=== PATIENT | male | born 1975 | race Two or more races ===

== ENCOUNTER 2025-02-18 01:55 | Inpatient (IN) | payer MEDICAID, OTHER ==
[~2025-02-18] VITALS: Ht 188 cm; Wt 134.0 kg
--- NOTE | 2025-02-18 02:20 | ED.PDOC ---
HPI Comments 49 year old male presents to the ED with no prior Hx associated to the c/c of Chest Pain. Pt states that he made a journey from [place] all the way to [place] 1x week ago. Upon arrival pt states that he started to develop hip pain. Pt states since that journey the pain has migrated to his chest and left shoulder to the point where he states his should feels as if it is "free falling". Pt denies any PMHx, SHx or any other associated symptoms, modifiers, recent injuries or sick contacts present at this time. Chief Complaint: Chest Pain Time Seen by MD: 02:14 Reviewed Notes: Nurses Notes, Medications, Allergies Information Source: Patient Mode of Arrival: Ambulatory Severity: Moderate Timing: Days Duration: Since onset, Days Prehospital treatment: None Location: Chest (L) Radiation: Shoulder (L) Quality: Sharp, Squeezing Onset: At Rest Cardiac Risk Factors: None PE Risk Factors: None History of: None Modifying Factors: Nothing Associated Signs and Symptoms: Palpitations Past Medical History PAST MEDICAL HISTORY: Denies Surgical History: Denies all surgeries Family History Family History: Reviewed,noncontributory to illness, No family hx of Cancer, No family hx of DM, No family hx of Heart pan, No family hx of HTN, No family hx ofKidney pan, No family hx of Liver pan, No family hx of Lung pan, No family hx of Stroke Social History Smoker: Non-Smoker Alcohol: Denies ETOH Use Drugs: Denies Drug Use Lives In: Home Constitutional: denies: chills, diaphoresis, fatigue, fever, malaise, sweats, weakness, others EENTM: denies: blurred vision, double vision, ear bleeding, ear discharge, ear drainage, ear pain, ear ringing, eye pain, eye redness, hearing loss, mouth pain, mouth swelling, nasal discharge, nose bleeding, nose congestion, nose pain, photophobia, tearing, throat pain, throat swelling, voice changes, others Respiratory: denies: cough, hemoptysis, orthopnea, SOB at rest, shortness of breath, SOB with excertion, stridor, wheezing, others Cardiovascular: reports: chest pain; denies: dizzy spells, diaphoresis, Dyspnea on exertion, edema, irregular heart beat, left arm pain, lightheadedness, palpitations, PND, syncope, others Gastrointestinal: denies: abdomen distended, abdominal pain, blood streaked bowels, constipated, diarrhea, dysphagia, difficulty swallowing, hematemesis, melena, nausea, poor appetite, poor fluid intake, rectal bleeding, rectal pain, vomiting, others Neurological: denies: dizziness, fainting, headache, left sided numbness, left sided weakness, numbness, paresthesia, pre-existing deficit, right sided numbne ss, right sided weakness, seizure, speech problems, tingling, tremors, weakness, others Musculoskeletal: reports: others (left shoulder pain ); denies: back pain, gout, joint pain, joint swelling, muscle pain, muscle stiffness, neck pain Integumetry: denies: bruises, change in color, change in hair/nails, dryness, laceration, lesions, lumps, rash, wounds, others Allergic/Immunocompromised: denies: Difficulty Healing, Frequent Infections, Hives, Itching, others Hematologic/Lymphatic: denies: anemia, blood clots, easy bleeding, easy bruising, swollen glands, others Endocrine: denies: excessive hunger, excessive sweating, excessive thirst, excessive urination, flushing, intolerance to cold, intolerance to heat, unexplained weight gain, unexplained weight loss, others Psychiatric: denies: anxiety, bipolar disorder, depression, hopeless, panic disorder, schizophrenia, sleepless, suicidal, others All Other Systems: Reviewed and Negative Physical Exam General Appearance: No Apparent Distress, Normal, Obese HEENT: Normal ENT Inspection, Pharynx Normal, TMs Normal Neck: Full Range of Motion, Non-Tender, Normal Respiratory: Chest Non-Tender, Lungs Clear, No Respiratory Distress, Normal Breath Sounds Cardiovascular: No Edema, No JVD, Regular Rate/Rhythm, Tachycardia Breast Exam: Deferred Gastrointestinal: Non Tender, Soft Genitalia: Deferred Pelvic: Deferred Rectal: Deferred Extremities: No calf tenderness, Normal range of motion, Non-tender, No pedal edema Musculoskeletal : Apperance: Normal Neurologic: Alert, No Motor Deficits, Normal Mood Cerebellar Function: Normal Reflexes: Normal Skin: Dry, Normal Color, Warm Lymphatic: No Adenopathy Was a procedure done? Was a procedure done?: No CP Differential Dx Differential Diagnosis: A-fib, A-Flutter, Angina, Electrolyte Disorder, H yperventilation, Hypoxia, Pulmonary Embolus, Renal Failure, Sinus Tachycardia, V-Fib, V-Tach, Other X-Ray, Labs, Meds, VS Vital Signs Date Time Temp Pulse Resp B/P (MAP) Pulse Ox O2 Delivery O2 Flow Rate FiO2 02/18/25 02:05 97.6 116 20 203/114 (143) 96 97.6 02/18/25 02:04 116 Lab Test 02/18/25 03:34 02/18/25 02:30 Range/Units Troponin I High Sensitivity 15 17 </=54 ng/L White Blood Count 18.9 H 4.4-10.8 10^3/uL Red Blood Count 6.25 H 4.5-5.90 10^6/uL Hemoglobin 16.7 13.5-17.5 g/dL Hematocrit 50.0 41.0-53.0 % Mean Corpuscular Volume 80.1 80.0-100.0 fL Mean Corpuscular Hemoglobin 26.7 L 28.0-32.0 pg Mean Corpuscular Hemoglobin Concent 33.3 32.0-36.0 g/dL Red Cell Distribution Width 15.1 H 11.8-14.3 % Platelet Count 89 L 140-450 10^3/uL Mean Platelet Volume 9.0 6.9-10.8 fL Neutrophils (%) (Auto) 75.1 37.0-80.0 % Lymphocytes (%) (Auto) 15.8 10.0-50.0 % Monocytes (%) (Auto) 6.8 0.0-12.0 % Eosinophils (%) (Auto) 1.6 0.0-7.0 % Basophils (%) (Auto) 0.7 0.0-2.0 % Neutrophils # (Auto) 14.2 H 1.6-8.6 10 ^3/uL Lymphocytes # (Auto) 3.0 0.4-5.4 10 ^3/uL Monocytes # (Auto) 1.3 0-1.3 10 ^3/uL Eosinophils # (Auto) 0.3 0-0.8 10 ^3/uL Basophils # (Auto) 0.1 0-0.2 10 ^3/uL Nucleated Red Blood Cells 0.1 % Prothrombin Time 10.0 9.3-11.8 sec Prothrombin Time INR 0.94 0.9-1.15 Activated Partial Thromboplast Time 28.7 24.5-34.5 SEC D-Dimer, Quantitative < 0.19 0.0-0.49 mg/L FEU Sodium Level 139 136-145 mmol/L Potassium Level 4.1 3.5-5.1 mmol/L Chloride Level 102 98-107 mmol/L Carbon Dioxide Level 28 20-31 mmol/L Anion Gap 9 5-15 Blood Urea Nitrogen 19 9-23 mg/dL Creatinine 1.28 0.700-1.30 mg/dL Glomerular Filtration Rate Calc 69 >90 mL/min BUN/Creatinine Ratio 14.8 10.0-20.0 Serum Glucose 240 H 74-106 mg/dL Calcium Level 9.4 8.7-10.4 mg/dL Total Bilirubin 0.3 0.2-1.0 mg/dL Aspartate Amino Transferase (AST) 18 13-40 U/L Alanine Aminotransferase (ALT) 34 7-40 U/L Alkaline Phosphatase 100 46-116 U/L B-Type Natriuretic Peptide 8.15 0-100 pg/mL Total Protein 7.7 5.7-8.2 g/dL Albumin 4.7 3.2-4.8 g/dL Time of 1ST Reevaluation: 02:45 Reevaluation 1ST: Unchanged Patient Education/Counseling: Diagnosis, Treatment Family Education/Counseling: No Family Present Departure 1 Departure Time of Disposition: 04:59 Impression: Primary Impression: Pneumonia Additional Impressions: Chest pain Hypertensive urgency Disposition: 09 ADMITTED INPATIENT Condition: Guarded Discharged With: Self Comments Left-Sided Chest Pain with Pneumonia Chief Complaint: Left-sided chest pain History of Present Illness: 49-year-old male presenting with left-sided chest pain for the past four days. The patient reports associated generalized weakness. He mentions a history of left hip pain approximately one week ago which has since improved. The presentation is complicated by tachycardia and elevated blood pressure, raising concerns for an underlying infectious process. Review of Systems: Constitutional: Positive for generalized weakness Cardiovascular: Positive for chest pain Musculoskeletal: Recent left hip pain, now improved All other systems reviewed and negative Vital Signs: Heart Rate: 115 bpm (elevated) Blood Pressure: 203/114 mmHg (severely elevated) Physical Exam: Physical examination details not documented in breaker tender Lab Results: WBC: 19, 000 (elevated) D-dimer: Normal Troponin: 17 (normal) BNP: 8 (normal) Glucose: 240 mg/dL (elevated) Imaging and Other Relevant Results: Chest X-ray: Patchy interstitial infiltrate noted Medical Decision Making: Summary Statement: 49-year-old male presenting with left-sided chest pain, tachycardia, hypertension, and elevated WBC count found to have radiographic evidence of pneumonia. Problem List: 1. Community-acquired pneumonia 2. Hypertensive urgency 3. Hyperglycemia Differential Diagnosis: 1. Community-acquired pneumonia 2. Acute coronary syndrome (ruled out) 3. Pulmonary embolism (ruled out) 4. Hypertensive emergency ED Course: Patient received IV fluids, IV hydralazine for blood pressure control, and was started on IV Zosyn and azithromycin for broad-spectrum antibiotic coverage. Decision made to admit for management of pneumonia and associated symptoms. Assessment and Plan: 1. Community-acquired Pneumonia: - Admit to medical floor for IV antibiotics (Zosyn and azithromycin) - Continue IV fluids for support - Monitor respiratory status 2. Hypertensive Urgency: - Successfully treated with IV hydralazine - Continue blood pressure monitoring - Require further workup during admission 3. Hyperglycemia: - Monitor blood glucose levels - Evaluate for underlying diabetes during admission Billing Information: ICD-10: J18.9 - Pneumonia, unspecified organism ICD-10: I16.0 - Hypertensive urgency ICD-10: R07.89 - Other chest pain ICD-10: R73.9 - Hyperglycemia, unspecified Critical Care Note Critical Care Time?: No Stability Stability form required: No Heart Score Heart Score: Heart Score Response (Comments) Value History Slightly Suspicious 0 EKG Repolarization Disturb 1 Age 45-64 1 Risk Factors 1 or 2 risk factors 1 Troponin Normal limit 0 Total 3 I personally scribed for VIC SANTILLAN MD ([email or web address]) on 02/18/25 at 02:20. Electronically submitted by Rodrigue Palafox ([email or web address]). VIC SANTILLAN MD February 18, 2025 02:20
[2025-02-18 03:01] LABS: Basophils # (auto) 0.1 10 ^3/uL (0-0.2); Eosinophils # (auto) 0.3 10 ^3/uL (0-0.8); Eosinophils % (auto) 1.6 % (0.0-7.0); Hemoglobin 16.7 g/dL (13.5-17.5); Monocytes # (auto) 1.3 10 ^3/uL (0-1.3); Nucleated Red Blood Cells % 0.1 %
[2025-02-18 03:02] LABS: Basophils % (auto) 0.7 % (0.0-2.0); Lymphocytes % (auto) 15.8 % (10.0-50.0); Mean Corpuscular Hemoglobin 26.7 pg (28.0-32.0); Mean Corpuscular Hgb Conc. 33.3 g/dL (32.0-36.0); Mean Corpuscular Volume 80.1 fL (80.0-100.0); Monocytes % (auto) 6.8 % (0.0-12.0); Neutrophils # (auto) 14.2 10 ^3/uL (1.6-8.6); Neutrophils % (auto) 75.1 % (37.0-80.0); Red Blood Cells 6.25 10^6/uL (4.5-5.90); Red Cell Distribution Width 15.1 % (11.8-14.3); White Blood Cell 18.9 10^3/uL (4.4-10.8)
[2025-02-18 03:19] LABS: INR 0.94 (0.9-1.15); Partial Thromboplastin Time 28.7 SEC (24.5-34.5)
[2025-02-18 03:44] LABS: Alanine Aminotransferase 34 U/L (7-40); Albumin 4.7 g/dL (3.2-4.8); Alkaline Phosphatase 100 U/L (46-116); Aspartate Aminotransferase 18 U/L (13-40); BUN/Creatinine Ratio 14.8 (10.0-20.0); Bilirubin, Total 0.3 mg/dL (0.2-1.0); Blood Urea Nitrogen 19 mg/dL (9-23); Calcium 9.4 mg/dL (8.7-10.4); Carbon Dioxide 28 mmol/L (20-31); Total Protein 7.7 g/dL (5.7-8.2)
[2025-02-18 04:26] LABS: Glucose 240 mg/dL (74-106)
[2025-02-18 04:41] LABS: Anion Gap 9 (5-15); Chloride 102 mmol/L (98-107); Potassium 4.1 mmol/L (3.5-5.1); Sodium 139 mmol/L (136-145)
[2025-02-18 05:29] LABS: Platelet Count (auto) 364 10^3/uL (140-450)
--- NOTE | 2025-02-18 06:47 | DVH ---
INDICATION: left sided chest pain TECHNIQUE: Frontal view of the chest. COMPARISON: None FINDINGS: . The heart and mediastinal contours are grossly unremarkable. There is no evidence of pleural disea se. The lungs are clear. The bony structures of the chest are intact without fracture. IMPRESSION: 1. No evidence of acute disease.
--- NOTE | 2025-02-18 07:55 | ECG ---
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
[2025-02-18] MEDS: cloNIDine HCL 0.1 MG TAB PO ONE (08:00)
[2025-02-18] MEDS: SODIUM CHLORIDE 0.9% 1,000 ML IV ONE (09:06)
[2025-02-18] MEDS: hydrALAZINE HCL 20 MG/ML VL IV ONE (09:07)
[2025-02-18] MEDS: PIPERACILLIN-TAZOB 3.375GM 100 ML IV ONE (09:07)
[2025-02-18 09:36] VITALS: PULSE 84; RESP 17; O2SAT 100
[2025-02-18] MEDS: AZITHROMYCIN 500MG/ 250ML 250 ML IV ONE (09:55)
[2025-02-18 10:48] LABS: Urine Bacteria None Seen /hpf (None Seen)
[2025-02-18 11:38] LABS: Urine Blood Negative /uL (Negative); Urine Clarity Clear (Clear); Urine Color Light-Yellow (Yellow); Urine Protein, UAD 1+ (Negative); Urine Specific Gravity 1.024 (1.001-1.035); Urine Squamous Epithelial Cell FEW /hpf (<5); Urine Urobilinogen Normal (Negative); Urine WBC 1 /HPF (0-3); Urine pH 6.5 (5.0-9.0)
[2025-02-18] MEDS ORDERED: hydrALAZINE HCL 20 MG/ML VL IV PRN (13:00)
[2025-02-18] MEDS: hydrALAZINE HCL 20 MG/ML VL IV PRN (13:07)
[2025-02-18] MEDS ORDERED: ACETAMINOPHEN 325 MG TAB PO PRN (13:45)
[2025-02-18] MEDS: PIPERACILLIN-TAZOB 3.375GM 100 ML IV SCH (15:06)
[2025-02-18] MEDS ORDERED: hydroCHLOROthiazide 25 MG TAB PO ONE (16:15)
--- NOTE | 2025-02-18 16:37 | DVHHP2 ---
History of Present Illness Reason for Visit: Left shoulder pain History of Present Illness 49-year-old male with no significant past medical history initiation with the hospital with left shoulder pain left hip pain and chest pain. Patient was found to have hypertensive urgency. Patient also has a WBC count high. Patient denies any fevers chills. Patient was admitted but he requesting to go home with outpatient follow up. Patient's blood cultures has been drawn but it is not back yet. Patient was denies any fevers she has a denies any abdominal pain nausea vomiting cough or phlegm. Cardiovascular: HTN Past Surgical History: None Family History: None Smoke: No ALCOHOL: none Drugs: None Review of Systems Review of Systems Twelve review of system were negative except mentioned above. Allergies: Coded Allergies: NO KNOWN ALLERGIES (Unverified , 02/18/25) per patient Medications Current Medications Medications Dose Ordered Sig/Nicol Route Start Time Stop Time Status Last Admin Dose Admin Hydralazine HCl 10 mg Q4HP PRN IV 02/18/25 13:00 02/18/25 13:07 10 MG Acetaminophen/ Hydrocodone Bitart 1 tab Q4HP PRN PO 02/18/25 13:45 Ondansetron HCl 4 mg Q4HP PRN IV 02/18/25 13:45 Enoxaparin Sodium 40 mg DAILY SC 02/19/25 10:00 Acetaminophen 650 mg Q6HP PRN PO 02/18/25 13:45 Nitroglycerin 0.4 mg Q5MINP PRN SL 02/18/25 13:45 Morphine Sulfate 2 mg Q30M PRN IV 02/18/25 13:45 Piperacillin Sod/ Tazobactam Sod 100 ml @ 25 mls/hr Q6H IV 02/18/25 15:00 02/18/25 15:06 25 MLS/HR Exam Vital Signs Vital Signs Date Time Temp Pulse Resp B/P (MAP) Pulse Ox O2 Delivery O2 Flow Rate FiO2 02/18/25 13:07 88 18 190/122 (144) 98 02/18/25 09:36 Room Air* 0 21 02/18/25 07:50 97.9 97.9 Exam HEENT pupils are reactive Neck is supple CV is S1-S2 regular rate and rhythm Respiratory viral clear GI posterior bowel sound Extremity no edema 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 motor deficit Labs/Xrays Labs Test 02/18/25 10:20 02/18/25 05:30 02/18/25 02:30 Range/Units Urine Color Light-yellow Yellow Urine Clarity Clear Clear Urine pH 6.5 5.0-9.0 Urine Specific [place] 1.024 1.001-1.035 Urine Protein 1+ H Negative Urine Ketones Negative Negative Urine Blood Negative Negative /uL Urine Nitrite Negative Negative Urine Bilirubin Negative Negative Urine Urobilinogen Normal Negative mg/dL Urine Leukocyte Esterase Negative Negative /uL Urine RBC 4 0 - 3 /hpf Urine Microscopic WBC 1 0-3 /HPF Urine Squamous Epithelial Cells Few <5 /hpf Urine Bacteria None seen None Seen /hpf Urine Glucose 1+ H Normal mg/dL Lactic Acid Level 1.8 0.4-2.0 mmol/L Troponin I High Sensitivity 12 </=54 ng/L White Blood Count 18.9 H 4.4-10.8 10^3/uL Red Blood Count 6.25 H 4.5-5.90 10^6/uL Hemoglobin 16.7 13.5-17.5 g/dL Hematocrit 50.0 41.0-53.0 % Mean Corpuscular Volume 80.1 80.0-100.0 fL Mean Corpuscular Hemoglobin 26.7 L 28.0-32.0 pg Mean Corpuscular Hemoglobin Concent 33.3 32.0-36.0 g/dL Red Cell Distribution Width 15.1 H 11.8-14.3 % Platelet Count 364 140-450 10^3/uL Mean Platelet Volume 9.0 6.9-10.8 fL Neutrophils (%) (Auto) 75.1 37.0-80.0 % Lymphocytes (%) (Auto) 15.8 10.0-50.0 % Monocytes (%) (Auto) 6.8 0.0-12.0 % Eosinophils (%) (Auto) 1.6 0.0-7.0 % Basophils (%) (Auto) 0.7 0.0-2.0 % Neutrophils # (Auto) 14.2 H 1.6-8.6 10 ^3/uL Lymphocytes # (Auto) 3.0 0.4-5.4 10 ^3/uL Monocytes # (Auto) 1.3 0-1.3 10 ^3/uL Eosinophils # (Auto) 0.3 0-0.8 10 ^3/uL Basophils # (Auto) 0.1 0-0.2 10 ^3/uL Nucleated Red Blood Cells 0.1 % Prothrombin Time 10.0 9.3-11.8 sec Prothrombin Time INR 0.94 0.9-1.15 Activated Partial Thromboplast Time 28.7 24.5-34.5 SEC D-Dimer, Quantitative < 0.19 0.0-0.49 mg/L FEU Sodium Level 139 136-145 mmol/L Potassium Level 4.1 3.5-5.1 mmol/L Chloride Level 102 98-107 mmol/L Carbon Dioxide Level 28 20-31 mmol/L Anion Gap 9 5-15 Blood Urea Nitrogen 19 9-23 mg/dL Creatinine 1.28 0.700-1.30 mg/dL Glomerular Filtration Rate Calc 69 >90 mL/min BUN/Creatinine Ratio 14.8 10.0-20.0 Serum Glucose 240 H 74-106 mg/dL Calcium Level 9.4 8.7-10.4 mg/dL Total Bilirubin 0.3 0.2-1.0 mg/dL Aspartate Amino Transferase (AST) 18 13-40 U/L Alanine Aminotransferase (ALT) 34 7-40 U/L Alkaline Phosphatase 100 46-116 U/L B-Type Natriuretic Peptide 8.15 0-100 pg/mL Total Protein 7.7 5.7-8.2 g/dL Albumin 4.7 3.2-4.8 g/dL Assessment/Plan Assessment/Plan 49-year-old male who had a long from [facility] to [place] found week ago presented to the hospital with left shoulder pain found to have 1. Left shoulder pain suspect musculoskeletal pain 2. Chest pain rule out VT 3. Hypertensive urgency 4. Leukocytosis likely reactive -start hydrochlorothiazide, hydralazine p.r.n., patient's blood cultures were drawn by the ER physician but patient does not want to stay. Plan discussed with: Patient, Spouse My Orders Orders - JORDYN MARQUEZ MD Procedure Category Date Status Time Hydralazine Injection PHA 02/18/25 In Process (Apresoline Inject 13:00 Admit ADMIT 02/18/25 Transmitted 13:43 Code Status CODE 02/18/25 Transmitted 13:43 2 Gm Sodium Diet DIET 02/18/25 Transmitted Dinner Hydrocodone-Acet PHA 02/18/25 In Process 5/325mg Tab ([place] 13:45 Ondansetron Hcl PHA 02/18/25 In Process (Zofran) 13:45 Enoxaparin Sodium PHA 02/19/25 In Process (Lovenox) 10:00 Complete Blood Count LAB 02/19/25 Verified 04:00 Comprehensive LAB 02/19/25 Verified Metabolic Panel 04:00 Condition: Fair KATY 02/18/25 In Process 13:43 Acetaminophen Tablet PHA 02/18/25 In Process (Tylenol Tablet) 13:45 Nitroglycerin PHA 02/18/25 In Process Sublingual (Ntrostat 13:45 Morphine Sulfate PHA 02/18/25 In Process Injection 13:45 Stat Ekg For Chest KATY 02/18/25 In Process Pain 13:43 Notify Md Of Changes KATY 02/18/25 In Process From Base 13:43 Magistrate Assistant For [facility] 02/18/25 In Process 24 Hours 13:43 Emergency Dysrhythmia [facility] 02/18/25 In Process Protocol 13:43 Rhythm Strips Once [facility] 02/18/25 In Process Every Shift 13:43 Oxygen By Nasal RT 02/18/25 Transmitted Cannula 13:43 Piperacillin-Tazob PHA 02/18/25 In Process 3.375gm (Zosyn 3.375g 15:00 Hydrochlorothiazide PHA 02/18/25 Logged Tablet (Hydrochlorot 16:15 Date of Service: February 18, 2025 Billing Provider: JORDYN MARQUEZ MD Common Visit Codes: NOT BILLABLE JORDYN MARQUEZ MD February 18, 2025 16:37
[2025-02-18] MEDS: ONDANSETRON HCL 4 MG/2 ML VIAL IV PRN (18:31)
[2025-02-18] MEDS: MORPHINE SULFATE INJ 2 MG/ml SYRG IV PRN (18:32)
[2025-02-18 19:30] VITALS: PULSE 120; RESP 18; O2SAT 96
[2025-02-18] MEDS: NITROGLYCERIN 0.4 MG SL TAB SL PRN (20:03)
[2025-02-18 21:00] VITALS: BP 192/98; PULSE 119; RESP 21; TEMP 98.5; O2SAT 98
[2025-02-18] MEDS ORDERED: cloNIDine HCL 0.1 MG TAB PO PRN (21:45)
[2025-02-18] MEDS: LABETALOL HCL 20 MG/4 ML VL IV ONE (21:57)
[2025-02-18 22:10] VITALS: BP 192/98; PULSE 119; RESP 21; TEMP 98.5; O2SAT 98
--- NOTE | 2025-02-18 22:38 | ECG ---
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
[2025-02-19 01:00] VITALS: BP 142/92; PULSE 91; RESP 19; TEMP 98.5; O2SAT 98
[2025-02-19 02:30] VITALS: BP 142/92; PULSE 91; RESP 20; TEMP 98.5; O2SAT 91
[2025-02-19] MEDS: HYDROcodone-ACET 5/325MG TAB PO PRN (02:54)
[2025-02-19 05:00] VITALS: BP 155/99; PULSE 94; RESP 19; TEMP 98.5; O2SAT 96
[2025-02-19 06:00] LABS: Basophils # (auto) 0.1 10 ^3/uL (0-0.2); Basophils % (auto) 0.4 % (0.0-2.0); Eosinophils # (auto) 0.3 10 ^3/uL (0-0.8); Eosinophils % (auto) 2.2 % (0.0-7.0); Hematocrit 46.4 % (41.0-53.0); Hemoglobin 15.3 g/dL (13.5-17.5); Lymphocytes # (auto) 2.8 10 ^3/uL (0.4-5.4); Lymphocytes % (auto) 18.7 % (10.0-50.0); Mean Corpuscular Hemoglobin 26.6 pg (28.0-32.0); Mean Corpuscular Hgb Conc. 32.9 g/dL (32.0-36.0); Mean Corpuscular Volume 80.9 fL (80.0-100.0); Monocytes % (auto) 6.8 % (0.0-12.0); Neutrophils # (auto) 10.9 10 ^3/uL (1.6-8.6); Neutrophils % (auto) 71.9 % (37.0-80.0); Nucleated Red Blood Cells % 0.2 %; Platelet Count (auto) 191 10^3/uL (140-450); Red Blood Cells 5.73 10^6/uL (4.5-5.90); Red Cell Distribution Width 14.9 % (11.8-14.3); White Blood Cell 15.1 10^3/uL (4.4-10.8)
[2025-02-19 06:13] LABS: Alanine Aminotransferase 27 U/L (7-40); Alkaline Phosphatase 86 U/L (46-116); Anion Gap 8 (5-15); BUN/Creatinine Ratio 9.7 (10.0-20.0); Blood Urea Nitrogen 11 mg/dL (9-23); Calcium 9.4 mg/dL (8.7-10.4); Carbon Dioxide 28 mmol/L (20-31); Chloride 103 mmol/L (98-107); Potassium 4.1 mmol/L (3.5-5.1); Sodium 139 mmol/L (136-145); Total Protein 6.9 g/dL (5.7-8.2)
[2025-02-19 06:14] LABS: Albumin 4.2 g/dL (3.2-4.8)
[2025-02-19 06:15] LABS: Bilirubin, Total 0.7 mg/dL (0.2-1.0)
[2025-02-19 06:18] LABS: Aspartate Aminotransferase 11 U/L (13-40); Glucose 194 mg/dL (74-106)
[2025-02-19 08:00] VITALS: PULSE 82
[2025-02-19] MEDS: ENOXAPARIN SOD 40 MG/0.4 ML SYRINGE SC SCH (09:49)
[2025-02-19] MEDS: AZITHROMYCIN 500MG/ 250ML 250 ML IV SCH (09:49)
[2025-02-19] MEDS ORDERED: hydroCHLOROthiazide 25 MG TAB PO SCH (10:00)
[2025-02-19] MEDS: hydroCHLOROthiazide 25 MG TAB PO SCH (10:02)
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
[2025-02-19] MEDS: amLODIPine BESYLATE 5 MG TAB PO ONE (13:31)
[2025-02-19 13:46] LABS: LDL Cholesterol 100 mg/dL (< 100); Triglycerides 83 mg/dL (< 150)
[2025-02-19 13:48] LABS: Cholesterol 144 mg/dL (< 200); HDL Cholesterol 33 mg/dL (40-59)
[2025-02-19] MEDS ORDERED: HYDR25TA5 PO (14:34)
[2025-02-19] MEDS ORDERED: AML5T PO (14:34)
[2025-02-19] MEDS ORDERED: AZIT500T PO (14:34)
--- NOTE | 2025-02-19 14:38 | DVHDS2 ---
Discharge Summary Date of Admission February 18, 2025 at 13:43 Date of Discharge: February 19, 2025 Labs/Diagnostic Data: Laboratory Results Test 02/19/25 05:28 02/18/25 10:20 02/18/25 05:30 02/18/25 02:30 White Blood Count 15.1 10^3/uL (4.4-10.8) Red Blood Count 5.73 10^6/uL (4.5-5.90) Hemoglobin 15.3 g/dL (13.5-17.5) Hematocrit 46.4 % (41.0-53.0) Mean Corpuscular Volume 80.9 fL (80.0-100.0) Mean Corpuscular Hemoglobin 26.6 pg (28.0-32.0) Mean Corpuscular Hemoglobin Concent 32.9 g/dL (32.0-36.0) Red Cell Distribution Width 14.9 % (11.8-14.3) Platelet Count 191 10^3/uL (140-450) Mean Platelet Volume 8.8 fL (6.9-10.8) Neutrophils (%) (Auto) 71.9 % (37.0-80.0) Lymphocytes (%) (Auto) 18.7 % (10.0-50.0) Monocytes (%) (Auto) 6.8 % (0.0-12.0) Eosinophils (%) (Auto) 2.2 % (0.0-7.0) Basophils (%) (Auto) 0.4 % (0.0-2.0) Neutrophils # (Auto) 10.9 10 ^3/uL (1.6-8.6) Lymphocytes # (Auto) 2.8 10 ^3/uL (0.4-5.4) Monocytes # (Auto) 1.0 10 ^3/uL (0-1.3) Eosinophils # (Auto) 0.3 10 ^3/uL (0-0.8) Basophils # (Auto) 0.1 10 ^3/uL (0-0.2) Nucleated Red Blood Cells 0.2 % Sodium Level 139 mmol/L (136-145) Potassium Level 4.1 mmol/L (3.5-5.1) Chloride Level 103 mmol/L (98-107) Carbon Dioxide Level 28 mmol/L (20-31) Anion Gap 8 (5-15) Blood Urea Nitrogen 11 mg/dL (9-23) Creatinine 1.13 mg/dL (0.700-1.30) Glomerular Filtration Rate Calc 81 mL/min (>90) BUN/Creatinine Ratio 9.7 (10.0-20.0) Serum Glucose 194 mg/dL (74-106) Calcium Level 9.4 mg/dL (8.7-10.4) Total Bilirubin 0.7 mg/dL (0.2-1.0) Aspartate Amino Transferase (AST) 11 U/L (13-40) Alanine Aminotransferase (ALT) 27 U/L (7-40) Alkaline Phosphatase 86 U/L (46-116) Total Protein 6.9 g/dL (5.7-8.2) Albumin 4.2 g/dL (3.2-4.8) Triglycerides Level 83 mg/dL (< 150) Cholesterol Level 144 mg/dL (< 200) LDL Cholesterol 100 mg/dL (< 100) HDL Cholesterol 33 mg/dL (40-59) Thyroid Stimulating Hormone (TSH) 1.44 uIU/mL (0.55-4.78) Urine Color Light-yellow (Yellow) Urine Clarity Clear (Clear) Urine pH 6.5 (5.0-9.0) Urine Specific [place] 1.024 (1.001-1.035) Urine Protein 1+ (Negative) Urine Ketones Negative (Negative) Urine Blood Negative /uL (Negative) Urine Nitrite Negative (Negative) Urine Bilirubin Negative (Negative) Urine Urobilinogen Normal mg/dL (Negative) Urine Leukocyte Esterase Negative /uL (Negative) Urine RBC 4 /hpf (0 - 3) Urine Microscopic WBC 1 /HPF (0-3) Urine Squamous Epithelial Cells Few /hpf (<5) Urine Bacteria None seen /hpf (None Seen) Urine Glucose 1+ mg/dL (Normal) Lactic Acid Level 1.8 mmol/L (0.4-2.0) Troponin I High Sensitivity 12 ng/L (</=54) Prothrombin Time 10.0 sec (9.3-11.8) Prothrombin Time INR 0.94 (0.9-1.15) Activated Partial Thromboplast Time 28.7 SEC (24.5-34.5) D-Dimer, Quantitative < 0.19 mg/L FEU (0.0-0.49) B-Type Natriuretic Peptide 8.15 pg/mL (0-100) Other Laboratory Tests 02/19/25 05:28 Brief Hx & Hospital Course: 49-year-old male who had a long drive from [facility] to [place] about one week ago presented to the hospital with left shoulder pain found to have hypertensive urgency. Patient also has a elevated white count but denies any fever cough or phlegm. Patient's UA is clean and chest x-ray shows no evidence of any consolidation. Patient was empirically given azithromycin for possible acute bronchitis as he was complaining of some cough without any phlegm. Patient is being discharged under stable condition. Patient was recommended to return to ER if there is any fevers chills or any concern. Blood cultures are negative to date. Condition at Discharge: Stable Final Diagnosis/Problems List 49-year-old male who had a long from [facility] to [place] found week ago presented to the hospital with left shoulder pain found to have 1. Left shoulder pain suspect musculoskeletal pain 2. Chest pain rule out ID 3. Hypertensive urgency 4. Leukocytosis likely reactive Discharge Disposition: Home SNF Discharge Will this Physician continue t: No Discharge Instruct/Medications Diet: Cardiac 2g Na,low cholest Activity: No Restrictions, As Tolerated Follow Up/Referral: Follow up with the PCP in one week with a repeat CBC Medications: Amlodipine, hydrochlorothiazide, azithromycin Discharge Statement: "Patient was advised to return to the ER or call 911 if any headaches, dizziness, shortness of breath, chest pain, abdominal pain, bleeding, fevers, or worsening of medical condition. Patient was counseled about treatment plan, medications, possible side effects, patientverbalized understanding. All questions were answered to the best of my ability. This discharge took greater then 30 minutes in planning, reviewing documentation, counseling the patient, and discussing with other team members." ASSESSMENT ASSESSMENT Assessment 49-year-old male who had a long from [facility] to [place] found week ago presented to the hospital with left shoulder pain found to have 1. Left shoulder pain suspect musculoskeletal pain 2. Chest pain rule out ID 3. Hypertensive urgency 4. Leukocytosis likely reactive Date of Service: February 19, 2025 Billing Provider: JORDYN MARQUEZ MD Common Visit Codes: NOT BILLABLE JORDYN MARQUEZ MD February 19, 2025 14:38
[2025-02-19 15:40] VITALS: BP 169/104; PULSE 92; TEMP 36.9
--- NOTE | 2025-02-19 17:16 | DVHSR ---
APPROVED REPORT EXAM: Two-dimensional and M-mode echocardiogram with Doppler and color Doppler. Blood Pressure: 138/97 mmHg INDICATION Chest Pain RISK FACTORS Height: 72, Weight: 295 DIMENSIONS LVDd4.6 (3.8-5.7cm)LA (2D)5.0 (1.9-4.0cm)Aortic Root3.8 (2.0-3.7cm) LVDs3.3 (2.5-4.0cm)LA (MM) (1.9-4.0cm)Aortic Cusp Exc2.1 (1.5-2.0cm) EF (%) 55.0 (55-70%)Rt. Atrium4.6 (1.9-4.0cm)Asc. Aorta cm Mitral Valve MitralMitral Stenosis E wave0.98m/sMV Mean GR.mmHg A wave0.91m/sMV Peak GR.mmHg E/A ratio1.12D MVAcm2 DECEL [id number] 1/2 [id number] IVRTmsDop MVA3.50cm2 Aortic Valve Aortic ValveAortic Stenosis V11.29m/Kayley Mean GR.7mmHg V21.73m/Kayley Peak GR.12mmHg LVOT Diameter2.3 (1.8-2.4cm)Doppler AVA3.10cm2 Other Information Technically limited study due to body habitus and patient position. Conclusion Technically limited study secondary to poor acoustic windows. Left ventricle: Left ventricle was normal size with normal systolic function. LVEF was around 55-60 %. There was no gross wall motion abnormality. Right ventricle is normal size with normal systolic function. Both atria were normal size. Aortic valve was not well visualized. There was no aortic insufficiency/stenosis. There was trace m itral/tricuspid regurgitation. Pulmonary valve was not well visualized. As there was no good tricuspid regurgitation jet, right ventricular systolic pressure could not be es timated.
[2025-02-20] MEDS ORDERED: amLODIPine BESYLATE 5 MG TAB PO SCH (10:00)
== END 2025-02-19 16:08 | disposition home or self-care (01) | DRG 199 ==
LOC: ER 01:55 → EDSEX 01:55 → OVERFLOW 13:43 → TELE-EAST 02-19 02:20
PROVIDERS: ADMIT Internal Medicine; ATTEND Internal Medicine
DX: I16.0 Hypertensive urgency (principal); D72.829 Elevated white blood cell count, unspecified; F17.200 Nicotine dependence, unspecified, uncomplicated; J20.9 Acute bronchitis, unspecified; M25.512 Pain in left shoulder; I10 Essential (primary) hypertension; Z83.3 Family history of diabetes mellitus; Z82.49 Family history of ischemic heart disease and other diseases of the circulatory system; Z79.2 Long term (current) use of antibiotics; Z91.148 Patient's other noncompliance with medication regimen for other reason; Z79.899 Other long term (current) drug therapy
CPT/HCPCS: 36415; 71045; 80053; 80061; 81001; 83605; 83880; 84443; 84484; 85025; 85379; 85610; 85730; 87040; 93005; 93306; 96361; 96374; G0378; J2405; J2543

== ENCOUNTER 2025-06-11 06:30 | Outpatient (CLI) | payer MEDICAID ==
[~2025-06-11 06:30] MED LIST: AML5T PO; AZIT500T PO; HYDR25TA5 PO
[2025-06-11 07:04] LABS: Hematocrit 46.3 % (41.0-53.0); Hemoglobin 15.7 g/dL (13.5-17.5); Mean Corpuscular Hemoglobin 27.6 pg (28.0-32.0); Mean Corpuscular Volume 81.8 fL (80.0-100.0); Nucleated Red Blood Cells % 0.1 %
[2025-06-11 07:25] LABS: Anion Gap 9 (5-15); Potassium 4.3 mmol/L (3.5-5.1); Sodium 137 mmol/L (136-145)
[2025-06-11 07:26] LABS: Calcium 9.5 mg/dL (8.7-10.4)
[2025-06-11 07:31] LABS: BUN/Creatinine Ratio 6.8 (10.0-20.0); Triglycerides 123 mg/dL (< 150)
[2025-06-11 07:32] LABS: Urine Protein, UAD Negative (Negative)
[2025-06-11 07:33] LABS: Cholesterol 192 mg/dL (< 200)
[2025-06-11 08:11] LABS: Blood Urea Nitrogen 8 mg/dL (9-23); Carbon Dioxide 32 mmol/L (20-31); Chloride 96 mmol/L (98-107); HDL Cholesterol 40 mg/dL (40-59)
[2025-06-11 08:15] LABS: Glucose 413 mg/dL (74-106)
== END 2025-06-11 17:00 | disposition home or self-care (01) ==
LOC: LAB 06:30
PROVIDERS: ATTEND Internal Medicine
DX: Z00.01 Encounter for general adult medical examination with abnormal findings (principal); Z79.899 Other long term (current) drug therapy
CPT/HCPCS: 36415; 80048; 80061; 81001; 83036; 84439; 84443; 85025

== ENCOUNTER 2025-06-11 09:33 | Emergency (ER) | payer MEDICAID ==
[~2025-06-11] VITALS: Ht 188 cm; Wt 110.1 kg
--- NOTE | 2025-06-11 10:40 | ED.PDOC ---
History of present illness HPI Comments This is a 50-year-old male with past medical history of high blood pressure referred from PCP office due to high blood glucose. Today, he had regular visit with PCP, upon labs workup he was found to have high blood glucose and referred to ER. He reports of polyuria and thirstiness since 2 months. He also reports of blurry vision and weight loss (around 70 lb within last 4 months). He denies fever, chest pain, shortness of breath, nausea, vomiting, or any bowel habit changes. Home meds: Amlodipine 5 mg, hydrochlorothiazide 25 mg (he stopped hyd rochlorothiazide due to muscle cramping) Social history: Smokes cigar Chief Complaint: Hyperglycemia Time Seen by MD: 09:41 History of present illness: Nurses Notes Allergies: Coded Allergies: NO KNOWN ALLERGIES (Unverified , 02/18/25) per patient Home Meds Active Scripts Azithromycin (Zithromax) 500 Mg Tab, 1 TAB PO DAILY, #3 TAB Prov:JORDYN MARQUEZ MD 02/19/25 Amlodipine Besylate (NORVASC TABLET) 5 Mg Tb, 10 MG PO DAILY, #30 TAB Prov:JORDYN MARQUEZ MD 02/19/25 Hctz (Hydrochlorothiazide) 25 Mg Tab, 25 MG PO DAILY for 30 Days, #30 TAB Prov:JORDYN MARQUEZ MD 02/19/25 Information Source: Patient Mode of Arrival: Ambulatory Past Medical History PAST MEDICAL HISTORY: HTN, Denies Surgical History: Denies all surgeries Family History Family History: Reviewed,noncontributory to illness, No family hx of Cancer, No family hx of DM, No family hx of Heart pan, No family hx of HTN, No family hx ofKidney pan, No family hx of Liver pan, No family hx of Lung pan, No family hx of Stroke Social History Smoker: Non-Smoker Alcohol: Denies ETOH Use Drugs: Denies Drug Use Lives In: Home Constitutional: reports: weakness; denies: chills, diaphoresis, fatigue, fever, malaise, sweats, others EENTM: denies: blurred vision, double vision, ear bleeding, ear discharge, ear drainage, ear pain, ear ringing, eye pain, eye redness, hearing loss, mouth pain, mouth swelling, nasal discharge, nose bleeding, nose congestion, nose pain, photophobia, tearing, throat pain, throat swelling, voice changes, others Respiratory: denies: cough, hemoptysis, orthopnea, SOB at rest, shortness of breath, SOB with excertion, stridor, wheezing, others Cardiovascular: denies: chest pain, dizzy spells, diaphoresis, Dyspnea on exertion, edema, irregular heart beat, left arm pain, lightheadedness, palpitations, PND, syncope, others Gastrointestinal: denies: abdomen distended, abdominal pain, blood streaked bowels, constipated, diarrhea, dysphagia, difficulty swallowing, hematemesis, melena, nausea, poor appetite, poor fluid intake, rectal bleeding, rectal pain, vomiting, others Genitourinary: reports: frequency; denies: burning, dysuria, flank pain, hematuria, incontinence, penile discharge, penile sore, pain, testicle pain, testicle swelling, urgency, others Neurological: denies: dizziness, fainting, headache, left sided numbness, left sided weakness, numbness, paresthesia, pre-existing deficit, right sided numbness, right sided weakness, seizure, speech problems, tingling, tremors, weakness, others Musculoskeletal: denies: back pain, gout, joint pain, joint swelling, muscle pain, muscle stiffness, neck pain, others Integumetry: denies: bruises, change in color, change in hair/nails, dryness, laceration, lesions, lumps, rash, wounds, others Allergic/Immunocompromised: denies: Difficulty Healing, Frequent Infections, Hives, Itching, others Hematologic/Lymphatic: denies: anemia, blood clots, easy bleeding, easy bruising, swollen glands, others Endocrine: denies: excessive hunger, excessive sweating, excessive thirst, excessive urination, flushing, intolerance to cold, intolerance to heat, unexplained weight gain, unexplained weight loss, others Psychiatric: denies: anxiety, bipolar disorder, depression, hopeless, panic disorder, schizophrenia, sleepless, suicidal, others Physical Exam General Appearance: No Apparent Distress, Normal HEENT: Normal ENT Inspection, Pharynx Normal, TMs Normal Neck: Full Range of Motion, Non-Tender, Normal, Normal Inspection Respiratory: Chest Non-Tender, Lungs Clear, No Accessory Muscle Use, No Respiratory Distress, Normal Breath Sounds Cardiovascular: No Edema, No JVD, No Murmur, No Gallop, Normal Peripheral Pulses, Regular Rate/Rhythm Breast Exam: Deferred Gastrointestinal: No Organomegaly, Non Tender, No Pulsatile Mass, Normal Bowel Sounds, Soft Genitalia: Deferred Pelvic: Deferred Rectal: Deferred Extremities: No calf tenderness, Normal capillary refill, Normal inspection, Normal range of motion, Non-tender, No pedal edema Musculoskeletal : Apperance: Normal Neurologic: Alert, pressure tester II-XII nml as Tested, No Motor Deficits, Normal Affect, Normal Mood, No Sensory Deficits Cerebellar Function: Normal Reflexes: Normal Skin: Dry, Normal Color, Warm Lymphatic: No Adenopathy Was a procedure done? Was a procedure done?: No Differential Diagnosis (DM) Differential Diagnosis: Electrolyte Abnormality, Hyperglycemia X-Ray, Labs, Meds, VS Vital Signs Date Time Temp Pulse Resp B/P (MAP) Pulse Ox O2 Delivery O2 Flow Rate FiO2 06/11/25 12:06 94 17 99 Room Air 06/11/25 12:06 97.9 94 16 145/89 (107) 99 97.9 06/11/25 09:36 98.0 9 16 166/100 99 98.0 Lab Test 06/11/25 12:11 06/11/25 09:38 06/11/25 09:37 06/11/25 06:40 Range/Units Urine Color Yellow Yellow Urine Clarity Clear Clear Urine pH 5.5 5.0-9.0 Urine Specific [place] 1.041 H 1.001-1.035 Urine Protein Negative Negative Urine Ketones Negative Negative Urine Blood Negative Negative /uL Urine Nitrite Negative Negative Urine Bilirubin Negative Negative Urine Urobilinogen Normal Negative mg/dL Urine Leukocyte Esterase Negative Negative /uL Urine RBC 3 0 - 3 /hpf Urine Microscopic WBC 7 H 0-3 /HPF Urine Squamous Epithelial Cells Few <5 /hpf Urine Bacteria None seen None Seen /hpf Urine Glucose 4+ H Normal mg/dL Urine Opiates Screen Neg NEGATIVE Urine Fentanyl Screen Neg NEGATIVE Urine Barbiturates Screen Neg NEGATIVE Urine Phencyclidine Screen Neg NEGATIVE Urine Amphetamines Screen Neg NEGATIVE Urine Benzodiazepines Screen Neg NEGATIVE Urine Cocaine Screen Neg NEGATIVE Urine Cannabinoids Screen Neg NEGATIVE POC Glucose 460 *H 437 *H 70-106 mg/dl White Blood Count 11.1 H 4.4-10.8 10^3/uL Red Blood Count 5.66 4.5-5.90 10^6/uL Hemoglobin 15.6 13.5-17.5 g/dL Hematocrit 46.5 41.0-53.0 % Mean Corpuscular Volume 82.2 80.0-100.0 fL Mean Corpuscular Hemoglobin 27.6 L 28.0-32.0 pg Mean Corpuscular Hemoglobin Concent 33.5 32.0-36.0 g/dL Red Cell Distribution Width 14.0 11.8-14.3 % Platelet Count 261 140-450 10^3/uL Mean Platelet Volume 9.2 6.9-10.8 fL Neutrophils (%) (Auto) 69.0 37.0-80.0 % Lymphocytes (%) (Auto) 22.1 10.0-50.0 % Monocytes (%) (Auto) 5.6 0.0-12.0 % Eosinophils (%) (Auto) 2.6 0.0-7.0 % Basophils (%) (Auto) 0.7 0.0-2.0 % Neutrophils # (Auto) 7.6 1.6-8.6 10 ^3/uL Lymphocytes # (Auto) 2.4 0.4-5.4 10 ^3/uL Monocytes # (Auto) 0.6 0-1.3 10 ^3/uL Eosinophils # (Auto) 0.3 0-0.8 10 ^3/uL Basophils # (Auto) 0.1 0-0.2 10 ^3/uL Nucleated Red Blood Cells 0.1 % Sodium Level 138 136-145 mmol/L Potassium Level 4.3 3.5-5.1 mmol/L Chloride Level 97 L 98-107 mmol/L Carbon Dioxide Level 30 20-31 mmol/L Anion Gap 11 5-15 Blood Urea Nitrogen 9 9-23 mg/dL Creatinine 1.16 0.700-1.30 mg/dL Glomerular Filtration Rate Calc 78 >90 mL/min BUN/Creatinine Ratio 7.8 L 10.0-20.0 Serum Glucose 410 *H 74-106 mg/dL Calcium Level 9.7 8.7-10.4 mg/dL Magnesium Level 2.0 1.6-2.6 mg/dL Total Bilirubin 0.8 0.2-1.0 mg/dL Aspartate Amino Transferase (AST) 17 13-40 U/L Alanine Aminotransferase (ALT) 29 7-40 U/L Alkaline Phosphatase 115 46-116 U/L Total Protein 7.7 5.7-8.2 g/dL Albumin 4.6 3.2-4.8 g/dL Current Medications Medications (Trade) Dose Ordered Sig/Nicol Route Start Time Stop Time Status Last Admin Sodium Chloride 2,000 ml @ 1,000 mls/hr Q2H ONCE IV 06/11/25 10:30 06/11/25 12:29 DC 06/11/25 11:10 Insulin Glargine (Lantus) 30 units ONCE ONCE SC 06/11/25 10:30 06/11/25 10:36 DC 06/11/25 12:04 Insulin Human Lispro (HumaLOG) 10 units ONCE ONCE SC 06/11/25 10:30 06/11/25 10:36 DC 06/11/25 11:59 Time of 1ST Reevaluation: 16:45 Reevaluation 1ST: Unchanged Patient Education/Counseling: Diagnosis, Treatment, Prognosis, Need For Follow Up Family Education/Counseling: No Family Present Comments Patient came to the hospital due to thirstiness, and polyuria. Blood glucose was more than 400s Patient was given IV fluid, insulin CBC and CBC checked UDS is normal Patient will be admitted for further management and insulin regime adjustment SEPSIS Sepsis Screen Date sepsis recognized/suspect: Jun 11, 2025 Time Sepsis recognized/suspect: 939 Recent Procedure: No On Antibiotic Therapy: No Respiratory Rate >20: No Heart Rate >90: No Temp<36 C (96.8 F) or >38.3 C: No SBP <90 or MAP <65 mmHG: No New Acute Mental Status Change: No Is the patient on CPAP, BIPAP,: No Vital Signs Date Time Temp Pulse Resp B/P (MAP) Pulse Ox O2 Delivery O2 Flow Rate FiO2 06/11/25 12:06 94 17 99 Room Air 06/11/25 12:06 97.9 94 16 145/89 (107) 99 97.9 06/11/25 09:36 98.0 9 16 166/100 99 98.0 Laboratory Tests Test 06/11/25 06:40 White Blood Count 11.1 10^3/uL (4.4-10.8) H Medications Medications Dose Ordered Sig/Nicol Route Start Time Stop Time Status Last Admin Dose Admin Insulin Glargine 30 units ONCE ONCE SC 06/11/25 10:30 06/11/25 10:36 DC 06/11/25 12:04 Insulin Human Lispro 10 units ONCE ONCE SC 06/11/25 10:30 06/11/25 10:36 DC 06/11/25 11:59 Sodium Chloride 2,000 ml @ 1,000 mls/hr Q2H ONCE IV 06/11/25 10:30 06/11/25 12:29 DC 06/11/25 11:10 Departure 1 Departure Time of Disposition: 16:46 Impression: Primary Impression: Uncontrolled diabetes mellitus with hyperglycemia Additional Impression: Hypertension Disposition: ADMITTED INPATIENT Admit to: Med Surg Condition: Guarded Critical Care Note Critical Care Time?: Yes (45 min-critical care time only) Stability Stability form required: No Heart Score Heart Score: Heart Score Response (Comments) Value History N/A 0 EKG N/A 0 Age N/A 0 Risk Factors N/A 0 Troponin N/A 0 Total 0 PB MULLER RESVON Jun 11, 2025 10:40
[2025-06-11 10:56] LABS: Hematocrit 46.5 % (41.0-53.0); Hemoglobin 15.6 g/dL (13.5-17.5); Mean Corpuscular Hemoglobin 27.6 pg (28.0-32.0); Mean Corpuscular Volume 82.2 fL (80.0-100.0); Nucleated Red Blood Cells % 0.1 %
[2025-06-11 11:06] LABS: Alanine Aminotransferase 29 U/L (7-40); Albumin 4.6 g/dL (3.2-4.8); Alkaline Phosphatase 115 U/L (46-116); Anion Gap 11 (5-15); BUN/Creatinine Ratio 7.8 (10.0-20.0); Bilirubin, Total 0.8 mg/dL (0.2-1.0); Calcium 9.7 mg/dL (8.7-10.4); Carbon Dioxide 30 mmol/L (20-31); Magnesium 2.0 mg/dL (1.6-2.6); Potassium 4.3 mmol/L (3.5-5.1); Sodium 138 mmol/L (136-145); Total Protein 7.7 g/dL (5.7-8.2)
[2025-06-11] MEDS: SODIUM CHLORIDE 0.9% 2,000 ML IV ONE (11:10)
[2025-06-11 11:21] LABS: Chloride 97 mmol/L (98-107)
[2025-06-11 11:22] LABS: Blood Urea Nitrogen 9 mg/dL (9-23); Glucose 410 mg/dL (74-106)
[2025-06-11] MEDS: INSULIN LISPRO (HUMAN) 100 UNITS/ML ML SC ONE (11:59)
[2025-06-11] MEDS: INSULIN LANTUS (GLARGINE) 1 /0.01ml (100units/ml) SC ONE (12:04)
[2025-06-11 12:06] VITALS: BP 145/89; PULSE 94; RESP 17; TEMP 97.9; O2SAT 99
[2025-06-11 15:08] LABS: Amphetamine Screen, Urine Neg (NEGATIVE); Barbiturate Scree,Urine Neg (NEGATIVE); Benzodiazephine Screen, Urine Neg (NEGATIVE); Cannabinoid Screen, Urine Neg (NEGATIVE); Cocaine Screen, Urine Neg (NEGATIVE); Opiate Scree,Urine Neg (NEGATIVE); Phencyclidine Screen, Urine Neg (NEGATIVE)
[2025-06-11 15:16] LABS: Urine Protein, UAD Negative (Negative)
== END 2025-06-11 17:07 | disposition left against medical advice (07) ==
LOC: ER 09:33
DX: E11.65 Type 2 diabetes mellitus with hyperglycemia (principal); I10 Essential (primary) hypertension; F17.290 Nicotine dependence, other tobacco product, uncomplicated; Z79.899 Other long term (current) drug therapy
CPT/HCPCS: 36415; 80053; 80307; 81001; 82947; 83735; 85025; 96360; 96372; 99284; J1815; J7030; 82962